=== PATIENT | female | born 1965 | race Caucasian/White ===

== ENCOUNTER 2017-01-03 09:04 | Emergency (ER) | payer BC, OTHER ==
[~2017-01-03] VITALS: Ht 165.1 cm; Wt 81.0 kg
[2017-01-03 09:08] VITALS: TEMP 36.5; Ht 165.1 cm; Wt 81.0 kg
[2017-01-03] MEDS ORDERED: OXYCODONE HCL IR 5 MG TAB (IMMEDIATE RELEASE) PO STA (09:23)
[2017-01-03] MEDS ORDERED: OXYC1TAB3 PO (10:24)
[2017-01-03 10:25] VITALS: BP 172/87; PULSE 78; O2SAT 99
--- NOTE | 2017-01-03 10:25 | EMERGENCY ROOM VISIT NOTE ---
History First contact with patient: 09:12 Chief Complaint: SHOULDER PAIN Stated Complaint: SHOULDER PAIN History of Present Illness The patient is a 51 year old female who presents to the Emergency Room with complaints of neck pain radiating into her left shoulder. The patient states that she has been having the pain for 2 weeks. It is getting progressively worse. The patient states that the pain started in the left side of her neck and now is radiating down to her shoulder blade and out to her shoulder. It goes down her arm. She denies any numbness and tingling in the left arm. The patient denies any chest pain. The patient denies any trauma to her neck or shoulder. She was seen initially by a chiropractor. He told her wasn't getting any better to go to orthopedics. She states it wasn't getting any better but she went to [facility] who took x-rays of her neck which revealed no bony abnormality. They told her she "had a pinched nerve". She cannot have steroids since she has glaucoma. They put her on a muscle relaxer but did not give her any other pain medication. She is taking ibuprofen 400 mg every 4 hours for pain without any relief. She recently switched insurance and her new family doctor will be at [facility] . She has not yet had an appointment there but her was there about one month ago. Review of Systems 10 system review was performed and was negative unless stated otherwise history of present illness. Past Medical/Surgical History Glaucoma, DVT, Social History Smoking Status: Former Smoker Smokeless Tobacco Use: No Alcohol Use: none Drug Use: none Marital Status: Housing Status: lives with family Occupation Status: unemployed Current/Historical Medications No Active Prescriptions or Reported Meds Allergies Coded Allergies: No Known Allergies (Verified , 01/03/17) Physical Exam Vital Signs Date Time Temp Pulse Resp B/P (MAP) Pulse Ox O2 Delivery O2 Flow Rate FiO2 01/03/17 09:08 36.5 82 20 184/89 96 Room Air Physical Exam GENERAL: 51-year-old white female appears in no acute distress. MENTAL Status: Alert and oriented 3.. LUNGS: Clear auscultation without wheezes rales or rhonchi. CARDIAC: Regular rate and rhythm without murmur. Pulses is full and equal throughout. CERVICAL SPINE: Appears patient has increased lordosis of the cervical spine. The patient is nontender to palpation over the spinous processes. She is tender to palpation over the left paravertebral region. She has full range of motion of the cervical spine with pain elicited with extension, left rotation and lateral bending. Industrial Relations Director strength is 5 out of 5 bilateral upper extremities and symmetrical. LEFT SHOULDER: No gross bony deformity noted. No erythema or edema noted. The patient is tender to palpation over the trapezius muscle. The patient has full range of motion of the shoulder with pain elicited only with complete abduction. Medical Decision & Procedures Medications Administered Medications (Trade) Dose Ordered Sig/Radha Route Start Time Stop Time Status Last Admin Dose Admin Oxycodone HCl (Roxicodone Immediate Rel Tab) 10 mg NOW STAT PO 01/03/17 09:23 01/03/17 09:24 DC 01/03/17 09:48 10 MG ED Course The patient was evaluated. She has already had x-rays done of the cervical spine at [facility] several I will not repeat the x-rays. I had the hospice case manager talk with the patient and the hospice case manager is going to call [facility] physicians group on Wednesday to schedule a follow-up appointment next week for the patient. The patient was given OxyIR 10 mg by mouth. The patient was reevaluated and was feeling much better. The patient was discharged home in stable condition with her driving.. Medical Decision Differential diagnosis include spinal stenosis, degenerative disc disease, herniated cervical disc, rotator cuff tear I think that shoulder pain is coming from the neck and therefore if the patient is not improving I feel she needs either physical therapy or possible MRI which can be ordered by her family physician. [place] Drug Monitoring Program Search Results: patient reviewed within database Impression Primary Impression: Neck pain on left side Departure Information Dispostion Home / Self-Care Condition GOOD Prescriptions Oxycodone Immediate Rel Tab (ROXICODONE IR) 5 Mg Tab 1-2 TAB PO Q6 Y for Pain, #24 TAB Prov: Eliana Zamora PA-C 01/03/17 Referrals No Doctor, Assigned (PCP) Forms HOME CARE DOCUMENTATION FORM, IMPORTANT VISIT INFORMATION Patient Instructions My [facility] Additional Instructions Ibuprofen 600 mg every 6 hours with food. May also take her muscle relaxer as previously prescribed. Take OxyIR for more severe pain. Do not drive while taking the OxyIR. Our hospice case manager will call you Wednesday with an appointment time with your PCP for follow-up. If you have any severe pain at home that is not controlled by your current medications, return to ER.
== END 2017-01-03 10:41 | disposition home or self-care (01) ==
LOC: C.EDB 09:06 → C.EDA 10:41
DX: M54.2 Cervicalgia (principal); H40.9 Unspecified glaucoma; Z87.891 Personal history of nicotine dependence

== ENCOUNTER → 2017-09-08 | Day surgery (SDC) | payer OTHER ==
[2017-09-07 10:42] VITALS: BMI 26.0
[~2017-09-08] VITALS: Ht 165.1 cm; Wt 72.7 kg
[~2017-09-08] MED LIST: CALC-393 PO; LIDOCAINE HCL 2% 2 ML VIAL (20MG/ML) ONE; MULT-506 PO; PROPOFOL IV EMULSION 10 MG/ML 20 ML VIAL IV ONE; SODIUM CHLORIDE 0.9% 500ML 500 ML IV ONE
[2017-09-08 13:16] VITALS: Ht 165.1 cm; Wt 72.7 kg
--- NOTE | 2017-09-08 13:31 | Endo History and Physical ---
History & Physical Date of Service: Sep 08, 2017. Chief Complaint: screening Referring Physician: Dr. Cueva History of Present Illness 51 yo CF who presents for screening colonoscopy. Past Surgical History Hx Cardiac Surgery: No Hx Internal Defibrillator: No Hx Pacemaker: No Hx Abdominal Surgery: Yes () Hx of Implantable Prosthesis: No Hx Post-Op Nausea and Vomiting: Yes Hx Cancer Surgery: No Hx Thoracic Surgery: No Hx Orthopedic: Yes (CERVICAL DISC SURGERY) Hx Urinary Tract Surgery: No Family History Colon CA Social History Smoking Status: Former Smoker Hx Substance Use: No Hx Alcohol Use: Yes (OCCASIONALLY) Allergies Coded Allergies: No Known Allergies (Verified , 09/08/17) Current Medications Reported Home Medications Medications Dose Route/Sig Max Daily Dose Days Date Category Calcium (Calcium Carbonate) 600 Mg Tab 1 Tab PO DAILY 09/07/17 Reported Multivitamin (Multivitamins) Tab 1 Tab PO DAILY 09/07/17 Reported Vital Signs Weight (Kilograms): 72.73 Height (Feet): 5 Height (Inches): 5 Physical Exam General Appearance: WD/WN, no apparent distress Respiratory/Chest: Auscultation: breath sounds normal Cardiovascular: Heart Auscultation: RRR Abdomen: Bowel Sounds: normal Inspection & Palpation: soft, non-distended, no tenderness, guarding & rebound Assessment and Plan Assessment: 51 yo CF who presents for screening colonoscopy. Plan: Proceed with colonoscopy.
--- NOTE | 2017-09-08 14:40 | Discharge Instructions ---
Endoscopy Patient Instructions Date / Procedure(s) Performed Sep 08, 2017. Colonoscopy Allergy Information Coded Allergies: No Known Allergies (Verified , 09/08/17) Discharge Date / Findings Sep 08, 2017. Colon polyps Rectal polyps Diverticulosis Internal hemorrhoids Medication Instructions OK to resume all medications today as prescribed Reported Home Medications Medications Dose Route/Sig Max Daily Dose Days Date Category Calcium (Calcium Carbonate) 600 Mg Tab 1 Tab PO DAILY 09/07/17 Reported Multivitamin (Multivitamins) Tab 1 Tab PO DAILY 09/07/17 Reported Provider Instructions Activity Restrictions - No exercising or heavy lifting for 24 hours. - Do not drink alcohol the day of the procedure. - Do not drive a car or operate machinery until the day after the procedure. - Do not make any important decisions or sign important papers in 24 hours after the procedure. Following Day: - Return to full activity which may include returning to work/school. Diet Start your diet with liquids and light foods (jello, soup, juice, toast). Then eat your usual diet if not nauseated. Treatment For Common After Affects For mild abdominal pain, bloating, or excessive gas: - Rest - Eat lightly - Lie on right side Follow-Up Information Follow-up with Dr. Cueva as scheduled Anesthesia Information What You Should Know You have had a procedure that required some medicine to reduce anxiety and discomfort. This treatment is called moderate sedation. After receiving the treatment, you may be sleepy, but you will be able to breathe on your own. The effects of the treatment may last for several hours. Follow these instructions along with Activity/Diet recommendations noted above: * Do NOT do anything where dizziness or clumsiness would be dangerous. * Rest quietly at home today, then you can be up and about tomorrow. * Have a responsible person stay with you the rest of today. * You may have had an I.V. today. If so, you may take the dressing off later today. Recommendations Call your doctor if: * Trouble breathing * Continuous vomiting for more than 24 hours * Temperature above 101 degrees * Severe abdominal pain or bloating * Pain not relieved by pain medicine ordered * There is increased drainage or redness from any incision * A large amount of rectal bleeding greater than 2-3 tablespoons. (If you had a polyp/s removed or have hemorrhoids, a small amount of blood - from the rectum is to be expected.) * You have any unanswered questions or concerns. IN THE EVENT OF A SERIOUS EMERGENCY, GO TO THE NEAREST EMERGENCY ROOM Your discharge instructions were prepared by provider Joseph Macias. Patient Instructions Signature Page Ryann Davies Patient (or Guardian) Signature/Date: I have read and understand the instructions given to me by my caregivers. Caregiver/RN/Doctor Signature/Date: The above-named patient and/or guardian has received patient instructions on this date. + Original Patient Signature Page (only) stays with chart. Please make copy for patient.
--- NOTE | 2017-09-08 14:54 | GI REPORT ---
Procedure Date: 09/08/2017 1:32 PM Procedure: Colonoscopy Indications: Screening for colorectal malignant neoplasm Medicines: Monitored Anesthesia Care Complications: No immediate complications. Estimated Blood Loss: Estimated blood loss: none. Procedure: Pre-Anesthesia Assessment: - Prior to the procedure, a History and Physical was performed, and patient medications and allergies were reviewed. The patient's tolerance of previous anesthesia was also reviewed. The risks and benefits of the procedure and the sedation options and risks were discussed with the patient. All questions were answered, and informed consent was obtained. Prior Anticoagulants: The patient has taken no previous anticoagulant or antiplatelet agents. ASA Grade Assessment: I - A normal, healthy patient. After reviewing the risks and benefits, the patient was deemed in satisfactory condition to undergo the procedure. After I obtained informed consent, the scope was passed under direct vision. Throughout the procedure, the patient's blood pressure, pulse, and oxygen saturations were monitored continuously. The scope was introduced through the anus and advanced to the cecum, identified by appendiceal orifice and ileocecal valve. The colonoscopy was performed without difficulty. The patient tolerated the procedure well. The quality of the bowel preparation was good. The ileocecal valve, appendiceal orifice, and rectum were photographed. Findings: The perianal and digital rectal examinations were normal. Four sessile polyps were found in the rectum and ascending colon. The polyps were 4 to 7 mm in size. These polyps were removed with a hot snare. Resection and retrieval were complete. Multiple small-mouthed diverticula were found in the sigmoid colon. Non-bleeding internal hemorrhoids were found during retroflexion. The hemorrhoids were small. Impression: - Four 4 to 7 mm polyps in the rectum and in the ascending colon, removed with a hot snare. Resected and retrieved. - Diverticulosis in the sigmoid colon. - Non-bleeding internal hemorrhoids. Recommendation: - Resume previous diet. - Continue present medications. - Repeat colonoscopy for surveillance based on pathology results. - Return to primary care physician as previously scheduled. Joseph Macias DO 09/08/2017 2:53:48 PM This report has been signed electronically. Note Initiated On: 09/08/2017 1:32 PM I attest to the content of the Intraoperative Record and orders documented therein, exceptions below
--- NOTE | 2017-09-08 15:00 | Anesthesiology Progress Note ---
Anesthesia Post Op Note Date & Time Sep 08, 2017 at 15:00 Vital Signs Pain Intensity: 0 Vital Signs Past 12 Hours Date Time Temp Pulse Resp B/P (MAP) Pulse Ox O2 Delivery O2 Flow Rate FiO2 09/08/17 14:39 92 16 140/80 (100) 95 Room Air 09/08/17 13:24 36.9 83 20 165/105 (125) 95 Room Air Notes Mental Status: alert / awake / arousable, participated in evaluation Pt Amnestic to Procedure: Yes Nausea / Vomiting: adequately controlled Pain: adequately controlled Airway Patency, RR, SpO2: stable & adequate BP & HR: stable & adequate Hydration State: stable & adequate Anesthetic Complications: no major complications apparent
[2017-09-08 15:10] VITALS: BP 147/87; PULSE 84; O2SAT 100
== END | disposition home or self-care (01) ==
LOC: C.GI 12:52
PROVIDERS: ATTEND Internal Medicine
DX: Z12.11 Encounter for screening for malignant neoplasm of colon (principal); D12.4 Benign neoplasm of descending colon; D12.8 Benign neoplasm of rectum; K57.30 Diverticulosis of large intestine without perforation or abscess without bleeding; K64.8 Other hemorrhoids; Z98.890 Other specified postprocedural states; Z87.891 Personal history of nicotine dependence; Z80.0 Family history of malignant neoplasm of digestive organs

== ENCOUNTER → 2017-12-17 | Outpatient (CLI) | payer OTHER ==
[~2017-12-17] MED LIST changes: +AMLO5TAB3 PO; -LIDOCAINE HCL 2% 2 ML VIAL (20MG/ML) ONE; -PROPOFOL IV EMULSION 10 MG/ML 20 ML VIAL IV ONE; +SINCALIDE INJ 1.5 MCG in SODIUM CHLORIDE 0.9% 100ML 100 ML IV ONE; -SODIUM CHLORIDE 0.9% 500ML 500 ML IV ONE
--- NOTE | 2017-12-17 15:01 | DIAGNOSTIC IMAGING REPORT ---
HEPATOBILIARY EF IMAGING CLINICAL HISTORY: 51 years-old Female with ELEVATED LFT. Acutely elevated LFTs TECHNIQUE: Following the intravenous administration of 5.5 mCi of technetium-99m Choletec, sequential abdominal images were obtained. In order to evaluate the contractile response of the gallbladder, 1.5 mcg of Kinevac was administered by slow intravenous infusion over 30 min starting approximately 60 min after the administration of the radiopharmaceutical. Sequential imaging was continued for 45 min after the start of the Kinevac infusion. COMPARISON: Abdominal ultrasound 12/02/2017 FINDINGS: There is prompt, uniform accumulation of the tracer by the liver. There is normal filling of the intrahepatic ducts, common bile duct and gallbladder and normal excretion of the tracer into the duodenum. There is adequate contraction of the gallbladder. The calculated gallbladder ejection fraction is 98% (normal >40%). There is no enterogastric reflux. IMPRESSION: 1. Normal contractile response of the gallbladder to Kinevac infusion. 2. Normal biliary imaging study. The above report was generated using voice recognition software. It may contain grammatical, syntax or spelling errors. Electronically signed by: Cipriano Barr M.D. 12/17/2017 2:59 PM Dictated Date/Time: 12/17/2017 2:56 PM
== END | disposition home or self-care (01) ==
LOC: C.NUCL 12:28
PROVIDERS: ATTEND Nurse Practitioner
DX: R94.5 Abnormal results of liver function studies (principal)

== ENCOUNTER 2017-12-29 21:08 | Observation (INO) | payer OTHER ==
[~2017-12-29] VITALS: Ht 165.1 cm; Wt 80.6 kg
[~2017-12-29 21:08] MED LIST changes: -AMLO5TAB3 PO; -SINCALIDE INJ 1.5 MCG in SODIUM CHLORIDE 0.9% 100ML 100 ML IV ONE
[2017-12-29] MEDS ORDERED: ONDANSETRON INJ 2 MG/ML 2 ML VIAL IV STA ×2 (21:25→23:17)
[2017-12-29] MEDS ORDERED: KETOROLAC TROMETHAMINE 30 MG/ML VIAL IV STA (21:25)
[2017-12-29] MEDS ORDERED: MoRPHine SULFATE 4 MG/ML 1 ML CARP\\VIAL IV STA ×2 (21:25→23:17)
[2017-12-29] MEDS ORDERED: SODIUM CHLORIDE 0.9% 1000ML 1,000 ML IV STA (21:25)
[2017-12-29 21:49] LABS: BASO % 0.3 %; BASO ABS # 0.03 K/uL (0-0.2); EOS % 1.2 %; EOS ABS # 0.11 K/uL (0-0.5); HEMATOCRIT 42.1 % (37-47); IG# 0.07 K/uL (0.00-0.02); LYMPH ABS # 2.02 K/uL (1.2-3.4); MEAN CELL VOLUME 88.3 fL (80-100); MEAN CORPUSCULAR HEMOGLOBIN 31.4 pg (25-34); MEAN CORPUSCULAR HGB CONC 35.6 g/dl (32-36); MONO % 2.2 %; NEUT % 73.5 %; NEUT ABS # 6.77 K/uL (1.4-6.5); PLATELET COUNT 262 K/uL (130-400); RED CELL DISTRIBUTION WIDTH SD 41.7 fL (36.4-46.3)
[2017-12-29 22:10] LABS: ALBUMIN 4.1 gm/dl (3.4-5.0); CALCIUM 9.6 mg/dl (8.5-10.1); CREATININE 0.85 mg/dl (0.60-1.20); POTASSIUM 4.1 mmol/L (3.5-5.1); TOTAL PROTEIN 8.2 gm/dl (6.4-8.2)
[2017-12-29] MEDS ORDERED: CEFTRIAXONE SOD INJ 1 GM ADDVIAL IV STA (22:17)
--- NOTE | 2017-12-29 22:32 | DIAGNOSTIC IMAGING REPORT ---
EXAMINATION: RENAL ULTRASOUND CLINICAL HISTORY: Left flank pain COMPARISON STUDY: FINDINGS: The right kidney measures 12.5 cm. The left kidney measures 11.2 cm. There is no right-sided hydronephrosis. There is mild fullness of the left renal collecting system. No renal masses are visualized. There are bilateral tiny echogenic renal foci likely representing calculi. No bladder abnormalities are visualized. Bilateral ureteral jets were visualized. IMPRESSION : 1. Probable tiny bilateral renal calculi 2. Minimal fullness of the left renal collecting system, but no evidence of high-grade obstruction as bilateral ureteral jets are visualized Electronically signed by: Justin Frazier M.D. 12/29/2017 10:30 PM Dictated Date/Time: 12/29/2017 10:25 PM
[2017-12-29] MEDS ORDERED: AMLO5TAB3 PO (22:40)
[2017-12-29] MEDS ORDERED: OPTIRAY 320 IV PRN (23:00)
[2017-12-30] VITALS (14 sets, daily range): BP systolic 108–147; BP diastolic 68–87; PULSE 70–97; TEMP 36.6–38.4; O2SAT 93–97; Ht 165.1 cm; Wt 80.6 kg
[2017-12-30] MEDS ORDERED: ZOLPIDEM TARTRATE 5 MG TAB PO PRN (00:15)
[2017-12-30] MEDS ORDERED: HYDROmorphone INJ 0.5 MG/0.5 ML SYR IV PRN (00:15)
[2017-12-30] MEDS ORDERED: MAGNESIUM HYDROXIDE SUSP 30 ML UDC PO PRN (00:15)
[2017-12-30] MEDS ORDERED: ALUMINUM/MAGNESIUM/SIMETH (MAALOX MAX) 30 ML UDC PO PRN (00:15)
[2017-12-30] MEDS ORDERED: ONDANSETRON INJ 2 MG/ML 2 ML VIAL IV PRN ×2 (00:15→08:45)
--- NOTE | 2017-12-30 00:21 | History and Physical ---
History & Physical Date & Time of Service: Dec 30, 2017 at 00:15 Chief Complaint: Pain Left Side Primary Care Physician: Emilie Avina [email or web address] History of Present Illness Source: patient, other 52 y/o F Hx HTN. Presents with L flank pain, nausea and vomiting. The pain has been severe. She has not had a fever. A UA is (+). Past Medical/Surgical History 1) HTN 2) Renal calculus 2006 - passed spontaneously Family History Mother due to lung CA Social History Employed as [employer] Smoking Status: Never Smoker Drug Use: none Marital Status: Occupational Status: unemployed Immunizations History of Influenza Vaccine: Unknown History of Tetanus Vaccine?: Unknown History of Pneumococcal: Unknown History of Hepatitis B Vaccine: Unknown Allergies Coded Allergies: No Known Allergies (Verified , 12/29/17) Home Medications Scheduled Amlodipine (Norvasc), 5 MG PO DAILY Review of Systems Constitutional: No fever, No chills, No sweats Eyes: No worsening of vision ENT: No hearing loss, No nasal symptoms Respiratory: No cough, No sputum, No wheezing Cardiovascular: No chest pain, No PND Abdomen: + pain Musculoskeletal: No joint pain Neurologic: No memory loss, No paralysis, No weakness Psychiatric: No depression symptoms Endocrine: No fatigue Hematologic / Lymphatic: No abnormal bleeding/bruising Integumentary: No rash Allergic / Immunologic: No environmental allergies Physical Exam Vital Signs Date Time Temp Pulse Resp B/P (MAP) Pulse Ox O2 Delivery O2 Flow Rate FiO2 12/29/17 23:28 103 18 154/79 95 Room Air 12/29/17 22:25 90 18 150/81 96 Room Air 12/29/17 21:14 36.8 91 18 176/99 93 Room Air General Appearance: WD/WN, no apparent distress Head: normocephalic Eyes: normal inspection ENT: normal ENT inspection, pharynx normal Neck: supple, no JVD Respiratory/Chest: chest non-tender, lungs clear, normal breath sounds Cardiovascular: regular rate, rhythm, no edema Abdomen/GI: normal bowel sounds Back: + left CVA tenderness Extremities/Musculoskelatal: normal inspection, no calf tenderness, normal capillary refill Neurologic/Psych: 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 II-XII nml as tested, no motor/sensory deficits, alert, oriented x 3 Skin: normal color, warm/dry, no rash Diagnostics Laboratory Results Results Past 24 Hours Test 12/29/17 21:25 12/29/17 21:30 Range/Units Urine Color YELLOW Urine Appearance CLOUDY CLEAR Urine pH 5.0 4.5-7.5 Urine Specific [place] 1.019 1.000-1.030 Urine Protein NEG NEG Urine Glucose (UA) NEG NEG Urine Ketones NEG NEG Urine Occult Blood 2+ NEG Urine Nitrite POS NEG Urine Bilirubin NEG NEG Urine Urobilinogen NEG NEG Urine Leukocyte Esterase LARGE NEG Urine WBC (Auto) >30 0-5 /hpf Urine RBC (Auto) 5-10 0-4 /hpf Urine Hyaline Casts (Auto) 1-5 0-5 /lpf Urine Epithelial Cells (Auto) >30 0-5 /lpf Urine Bacteria (Auto) 4+ NEG White Blood Count 9.20 4.8-10.8 K/uL Red Blood Count 4.77 4.2-5.4 M/uL Hemoglobin 15.0 12.0-16.0 g/dL Hematocrit 42.1 37-47 % Mean Corpuscular Volume 88.3 80-100 fL Mean Corpuscular Hemoglobin 31.4 25-34 pg Mean Corpuscular Hemoglobin Concent 35.6 32-36 g/dl Platelet Count 262 130-400 K/uL Mean Platelet Volume 10.0 7.4-10.4 fL Neutrophils (%) (Auto) 73.5 % Lymphocytes (%) (Auto) 22.0 % Monocytes (%) (Auto) 2.2 % Eosinophils (%) (Auto) 1.2 % Basophils (%) (Auto) 0.3 % Neutrophils # (Auto) 6.77 1.4-6.5 K/uL Lymphocytes # (Auto) 2.02 1.2-3.4 K/uL Monocytes # (Auto) 0.20 0.11-0.59 K/uL Eosinophils # (Auto) 0.11 0-0.5 K/uL Basophils # (Auto) 0.03 0-0.2 K/uL RDW Standard Deviation 41.7 36.4-46.3 fL RDW Coefficient of Variation 13.0 11.5-14.5 % Immature Granulocyte % (Auto) 0.8 % Immature Granulocyte # (Auto) 0.07 0.00-0.02 K/uL Sodium Level 137 136-145 mmol/L Potassium Level 4.1 3.5-5.1 mmol/L Chloride Level 103 98-107 mmol/L Carbon Dioxide Level 25 21-32 mmol/L Anion Gap 9.0 3-11 mmol/L Blood Urea Nitrogen 17 7-18 mg/dl Creatinine 0.85 0.60-1.20 mg/dl Est Creatinine Clear Calc Drug Dose 80.5 ml/min Estimated GFR () 90.7 Estimated GFR (Non- 78.2 BUN/Creatinine Ratio 19.8 10-20 Random Glucose 158 70-99 mg/dl Calcium Level 9.6 8.5-10.1 mg/dl Total Bilirubin 0.5 0.2-1 mg/dl Direct Bilirubin 0-0.2 mg/dl Aspartate Amino Transf (AST/SGOT) 37 15-37 U/L Alanine Aminotransferase (ALT/SGPT) 72 12-78 U/L Alkaline Phosphatase 128 45-117 U/L Total Protein 8.2 6.4-8.2 gm/dl Albumin 4.1 3.4-5.0 gm/dl Chemistry Specimen Hemolysis Microbiology Results 12/29/17 Urine Culture, Received Pending Diagnostic Radiology CT abdomen/pelvis 5mm proximal obstructing calculus - no significant hydronephrosis reported. Impression Assessment and Plan 52 y/o F Hx HTN. Presents with L flank pain, nausea and vomiting. The pain has been severe. She has not had a fever. A UA is (+). 1) Obstructing calculus with UTI. Pt placed on abx and IVF. Antiemetics and analgesics provided as needed. She will be evaluated for stenting by the urology service. She does not have significant risk factors for undergoing surgery. 2) HTN - cont Norvasc Full code - SCDs pending a procedure. Total time for this admit including review of labs, meds, imaging, records - discussion with pt and ER attending - 32 min Resuscitation Status VTE Prophylaxis Will order VTE Prophylaxis: Yes
[2017-12-30] MEDS ORDERED: IV FLUIDS COMPLETED PRN (00:30)
--- NOTE | 2017-12-30 01:39 | EMERGENCY ROOM VISIT NOTE ---
History First contact with patient: 21:23 Chief Complaint: FLANK PAIN Stated Complaint: PAIN LEFT SIDE History of Present Illness The patient is a 52 year old female who presents to the Emergency Room with complaints of sudden onset of severe left flank pain that radiates to her groin for the past hour currently 9 out of 10. Nothing makes it better or worse. Described as aching. Patient complains of nausea and vomiting. She has had a history of kidney stones and this feels similar. Patient denies chest pain, dyspnea, fever, chills, cough, congestion, urinary symptoms. No injury to the area. No history of diverticulitis. She no longer is menstruating. Review of Systems An 10 system review of systems was completed with positives and pertinent negatives listed in the HPI. Past Medical/Surgical History Medical Problems: (1) Hydronephrosis with obstructing calculus (2) UTI (urinary tract infection) Social History Smoking Status: Never Smoker Alcohol Use: none Drug Use: none Marital Status: Housing Status: lives with family Occupation Status: unemployed Current/Historical Medications Scheduled Amlodipine (Norvasc), 5 MG PO DAILY Physical Exam Vital Signs Date Time Temp Pulse Resp B/P (MAP) Pulse Ox O2 Delivery O2 Flow Rate FiO2 12/30/17 00:55 102 18 122/69 95 Room Air 12/29/17 23:28 103 18 154/79 95 Room Air 12/29/17 22:25 90 18 150/81 96 Room Air 12/29/17 21:14 36.8 91 18 176/99 93 Room Air Physical Exam VITALS: Vitals are noted on the nurse's note and reviewed by myself. Vital signs hypertensive. GENERAL: Pleasant female who appears in pain, in no acute distress, nondiaphoretic, well-developed well-nourished. SKIN: The skin was without rashes, erythema, edema, or bruising. There is no tenting of the skin. Capillary reflex less than 2 seconds. HEAD: Normocephalic atraumatic. EARS: External auditory canals clear, tympanic membranes pearly lepe without erythema or effusion bilaterally. EYES: Pupils equal round and reactive to light and accommodation. Conjunctivae without injection, sclerae without icterus. Extraocular movements intact. NOSE: Patent, turbinates without inflammation or discharge. MOUTH: Mucous membranes moist. Pharynx without erythema or exudate. Uvula midline. Airway patent. Tongue does not deviate. NECK: Supple without nuchal rigidity. No lymphadenopathy. No thyromegaly. Cervical spine is nontender. No JVD. HEART: Regular rate and rhythm without murmurs gallops or rubs. LUNGS: Clear to auscultation bilaterally without wheezes, rales or rhonchi. No retractions or accessory muscle use. ABDOMEN: Positive bowel sounds x 4. Normal tympanic percussion. Soft, left lower quadrant tender to palpation, without masses or organomegaly. Schaefer sign negative. No guarding or rebound tenderness. Left CVA tenderness MUSCULOSKELETAL: No muscle atrophy, erythema, or edema noted. NEURO: Patient was alert and oriented to person place and time. Normal sensation to light and sharp touch. No focal neurological deficits. Medical Decision & Procedures Laboratory Results 12/29/17 21:30 Red Blood Count 4.77, Mean Corpuscular Volume 88.3, Mean Corpuscular Hemoglobin 31.4, Mean Corpuscular Hemoglobin Concent 35.6, Mean Platelet Volume 10.0, Neutrophils (%) (Auto) 73.5, Lymphocytes (%) (Auto) 22.0, Monocytes (%) (Auto) 2.2, Eosinophils (%) (Auto) 1.2, Basophils (%) (Auto) 0.3, Neutrophils # (Auto) 6.77, Lymphocytes # (Auto) 2.02, Monocytes # (Auto) 0.20, Eosinophils # (Auto) 0.11, Basophils # (Auto) 0.03 12/29/17 21:30 Test 12/29/17 21:25 12/29/17 21:30 Urine Color YELLOW Urine Appearance CLOUDY (CLEAR) Urine pH 5.0 (4.5-7.5) Urine Specific [place] 1.019 (1.000-1.030) Urine Protein NEG (NEG) Urine Glucose (UA) NEG (NEG) Urine Ketones NEG (NEG) Urine Occult Blood 2+ (NEG) Urine Nitrite POS (NEG) Urine Bilirubin NEG (NEG) Urine Urobilinogen NEG (NEG) Urine Leukocyte Esterase LARGE (NEG) Urine WBC (Auto) >30 /hpf (0-5) Urine RBC (Auto) 5-10 /hpf (0-4) Urine Hyaline Casts (Auto) 1-5 /lpf (0-5) Urine Epithelial Cells (Auto) >30 /lpf (0-5) Urine Bacteria (Auto) 4+ (NEG) White Blood Count 9.20 K/uL (4.8-10.8) Red Blood Count 4.77 M/uL (4.2-5.4) Hemoglobin 15.0 g/dL (12.0-16.0) Hematocrit 42.1 % (37-47) Mean Corpuscular Volume 88.3 fL (80-100) Mean Corpuscular Hemoglobin 31.4 pg (25-34) Mean Corpuscular Hemoglobin Concent 35.6 g/dl (32-36) Platelet Count 262 K/uL (130-400) Mean Platelet Volume 10.0 fL (7.4-10.4) Neutrophils (%) (Auto) 73.5 % Lymphocytes (%) (Auto) 22.0 % Monocytes (%) (Auto) 2.2 % Eosinophils (%) (Auto) 1.2 % Basophils (%) (Auto) 0.3 % Neutrophils # (Auto) 6.77 K/uL (1.4-6.5) Lymphocytes # (Auto) 2.02 K/uL (1.2-3.4) Monocytes # (Auto) 0.20 K/uL (0.11-0.59) Eosinophils # (Auto) 0.11 K/uL (0-0.5) Basophils # (Auto) 0.03 K/uL (0-0.2) RDW Standard Deviation 41.7 fL (36.4-46.3) RDW Coefficient of Variation 13.0 % (11.5-14.5) Immature Granulocyte % (Auto) 0.8 % Immature Granulocyte # (Auto) 0.07 K/uL (0.00-0.02) Anion Gap 9.0 mmol/L (3-11) Est Creatinine Clear Calc Drug Dose 80.5 ml/min Estimated GFR () 90.7 Estimated GFR (Non- 78.2 BUN/Creatinine Ratio 19.8 (10-20) Calcium Level 9.6 mg/dl (8.5-10.1) Total Bilirubin 0.5 mg/dl (0.2-1) Direct Bilirubin mg/dl (0-0.2) Aspartate Amino Transf (AST/SGOT) 37 U/L (15-37) Alanine Aminotransferase (ALT/SGPT) 72 U/L (12-78) Alkaline Phosphatase 128 U/L (45-117) Total Protein 8.2 gm/dl (6.4-8.2) Albumin 4.1 gm/dl (3.4-5.0) Chemistry Specimen Hemolysis Medications Administered Medications (Trade) Dose Ordered Sig/Radha Route Start Time Stop Time Status Last Admin Dose Admin Ketorolac Tromethamine (Toradol Inj) 10 mg NOW STAT IV 12/29/17 21:25 12/29/17 21:27 DC 12/29/17 21:33 10 MG Morphine Sulfate (MoRPHine SULFATE INJ) 4 mg NOW STAT IV 12/29/17 21:25 12/29/17 21:27 DC 12/29/17 21:33 4 MG Ondansetron HCl (Zofran Inj) 4 mg NOW STAT IV 12/29/17 21:25 12/29/17 21:27 DC 12/29/17 21:33 4 MG Sodium Chloride 1,000 ml @ 999 mls/hr Q1H1M STAT IV 12/29/17 21:25 12/29/17 22:25 DC 12/29/17 21:32 999 MLS/HR Ceftriaxone Sodium (Rocephin Inj) 1 gm NOW STAT IV 12/29/17 22:17 12/29/17 22:18 DC 12/29/17 23:40 1 GM Morphine Sulfate (MoRPHine SULFATE INJ) 4 mg NOW STAT IV 12/29/17 23:17 12/29/17 23:18 DC 12/29/17 23:23 4 MG Ondansetron HCl (Zofran Inj) 4 mg NOW STAT IV 12/29/17 23:17 12/29/17 23:18 DC 12/29/17 23:23 4 MG ED Course Prior records/ancillary studies reviewed. Triage Nursing notes reviewed. Additional history obtained from family The patient's history was concerning for abdominal pain. Differential diagnosis: Etiologies such as appendicitis, diverticulitis, PUD, biliary pathology, UTI, pancreatitis, obstruction, mesenteric ischemia, aortic pathology, infections, inflammatory bowel disease, renal colic, as well as others were entertained. Physical examination findings: As above. ER treatment provided: Morphine, Zofran, IV fluids, Rocephin On reassessment the patient felt better. Diagnostics interpreted by me: The labs revealed urine consistent with infection sent for culture. Hyperglycemia without DKA No leukocytosis Imaging studies: [] EXAMINATION: RENAL ULTRASOUND CLINICAL HISTORY: Left flank pain COMPARISON STUDY: FINDINGS: The right kidney measures 12.5 cm. The left kidney measures 11.2 cm. There is no right-sided hydronephrosis. There is mild fullness of the left renal collecting system. No renal masses are visualized. There are bilateral tiny echogenic renal foci likely representing calculi. No bladder abnormalities are visualized. Bilateral ureteral jets were visualized. IMPRESSION : 1. Probable tiny bilateral renal calculi 2. Minimal fullness of the left renal collecting system, but no evidence of high-grade obstruction as bilateral ureteral jets are visualized Electronically signed by: Justin Frazier M.D. CT ABDOMEN & PELVIS With Contrast: 5 mm obstructing proximal left ureteral stone. No evidence for pyelonephritis Fibroid uterus Radiologist: Heber Lloyd MD Consultation: A consultation was placed with the urologist, Dr. Gomes and recommends medical admission and will place a stent in the morning. Dr. Rivera was consulted and will evaluate the patient. The case was discussed and diagnostics were reviewed. The patient was evaluated in the ER for further treatment. Exam and history seem consistent with UTI and obstructing stone. Urology and medicine consult. Patient started on antibiotics. The pain was managed. Patient agrees to treatment plan of admission. Patient had no fever. She had no leukocytosis. Urine culture was placed. The patient did not have acute abdomen on exam. She was reassessed multiple times. By the evaluation outlined above emergent etiologies such as appendicitis, diverticulitis, PUD, biliary pathology, pancreatitis, obstruction, mesenteric ischemia, aortic pathology, inflammatory bowel disease, as well as others were deemed relatively unlikely. The pt informed about the findings as listed above. All questions were answered and pleased with the treatment. Case reviewed with my attending The chart was completed utilizing [employer] voice recognition software. Grammatical errors, random word insertions, pronoun errors, and incomplete sentences are an occassional consequence of this system due to software limitations, ambient noise, and hardware issues. Any formal questions or concerns about the content, text, or information contained within the body of this dictation should be directly addressed to the physician preschool assistant principal for clarification. Medical Decision As above Blood Pressure Screening Patient's blood pressure: Elevated blood pressure Blood pressure disposition: Elevated BP felt to be situational Impression Primary Impression: Hydronephrosis with obstructing calculus Additional Impression: UTI (urinary tract infection) Departure Information Dispostion Being Evaluated By Hospitalist Condition GOOD Referrals Emilie Avina, C.R.N.P. (PCP) Patient Instructions My [facility] Problem Qualifiers
[2017-12-30] MEDS ORDERED: POLYETHYLENE (MIRALAX) 17 GM PACK PO PRN (01:45)
[2017-12-30] MEDS ORDERED: SODIUM CHLORIDE 0.9% 1000ML 1,000 ML IV SCH (01:45)
[2017-12-30] MEDS: ACETAMINOPHEN 325 MG TAB PO PRN ×2 (01:46→03:26)
[2017-12-30] MEDS ORDERED: ACETAMINOPHEN 325 MG TAB PO ONE (03:30)
[2017-12-30] MEDS ORDERED: NURSING VERBAL MED ORDER ONE (03:30)
[2017-12-30] MEDS ORDERED: CIPROFLOXACIN 400MG / 200ML D5W IV SCH (06:00)
--- NOTE | 2017-12-30 06:44 | DIAGNOSTIC IMAGING REPORT ---
ABD/PELVIS IV CONTRAST ONLY CT DOSE: 469.63 mGy.cm HISTORY: Flank pain left flank pain, UTI, ? absces/pyelo TECHNIQUE: Multiaxial CT images of the abdomen and pelvis were performed following the use of intravenous contrast. A dose lowering technique was utilized adhering to the principles of ALARA. COMPARISON STUDY: None. FINDINGS: Lung bases are clear. Small hepatic cyst. Kidneys are negative for hydronephrosis on the right. Left demonstrates mild hydronephrosis and hydroureter. There is a 4 mm obstructing calculus left ureteropelvic junction. The Distal aspects of the ureters are unremarkable. There is a fibroid uterus. Bladder is midline. IMPRESSION: 1. 4 mm obstructing calculus left ureteropelvic junction. 2. Mild left hydroureteronephrosis. 3. Fibroid uterus. The above report was generated using voice recognition software. It may contain grammatical, syntax or spelling errors. Electronically signed by: Ibrahima Zamora M.D. 12/30/2017 6:43 AM Dictated Date/Time: 12/30/2017 6:41 AM
--- NOTE | 2017-12-30 07:41 | Urology Consultation ---
History General Date of Service: Dec 30, 2017. Chief Complaint: left flank pain Primary Care Physician: Emilie Avina C.R.N.P. Pt seen a urologist before?: No History of Present Illness 52 yo female presents to [facility] with c/o 1 day of left flank pain and n/v. CT scan showing a 4mm proximal left ureteral stone. Pt noted to be febrile overnight at 38.4C. UC&S pending. White count and Cr are normal. Denies dysuria or hematuria. She has a previous hx of passing a stone several years ago. Imaging Imaging: CT Laboratory Last 24 Hours Test 12/29/17 21:25 12/29/17 21:30 Urine Color YELLOW Urine Appearance CLOUDY Urine pH 5.0 Urine Specific [place] 1.019 Urine Protein NEG Urine Glucose (UA) NEG Urine Ketones NEG Urine Occult Blood 2+ Urine Nitrite POS Urine Bilirubin NEG Urine Urobilinogen NEG Urine Leukocyte Esterase LARGE Urine WBC (Auto) >30 /hpf Urine RBC (Auto) 5-10 /hpf Urine Hyaline Casts (Auto) 1-5 /lpf Urine Epithelial Cells (Auto) >30 /lpf Urine Bacteria (Auto) 4+ White Blood Count 9.20 K/uL Red Blood Count 4.77 M/uL Hemoglobin 15.0 g/dL Hematocrit 42.1 % Mean Corpuscular Volume 88.3 fL Mean Corpuscular Hemoglobin 31.4 pg Mean Corpuscular Hemoglobin Concent 35.6 g/dl Platelet Count 262 K/uL Mean Platelet Volume 10.0 fL Neutrophils (%) (Auto) 73.5 % Lymphocytes (%) (Auto) 22.0 % Monocytes (%) (Auto) 2.2 % Eosinophils (%) (Auto) 1.2 % Basophils (%) (Auto) 0.3 % Neutrophils # (Auto) 6.77 K/uL Lymphocytes # (Auto) 2.02 K/uL Monocytes # (Auto) 0.20 K/uL Eosinophils # (Auto) 0.11 K/uL Basophils # (Auto) 0.03 K/uL RDW Standard Deviation 41.7 fL RDW Coefficient of Variation 13.0 % Immature Granulocyte % (Auto) 0.8 % Immature Granulocyte # (Auto) 0.07 K/uL Sodium Level 137 mmol/L Potassium Level 4.1 mmol/L Chloride Level 103 mmol/L Carbon Dioxide Level 25 mmol/L Anion Gap 9.0 mmol/L Blood Urea Nitrogen 17 mg/dl Creatinine 0.85 mg/dl Est Creatinine Clear Calc Drug Dose 80.5 ml/min Estimated GFR () 90.7 Estimated GFR (Non- 78.2 BUN/Creatinine Ratio 19.8 Random Glucose 158 mg/dl Calcium Level 9.6 mg/dl Total Bilirubin 0.5 mg/dl Direct Bilirubin mg/dl Aspartate Amino Transf (AST/SGOT) 37 U/L Alanine Aminotransferase (ALT/SGPT) 72 U/L Alkaline Phosphatase 128 U/L Total Protein 8.2 gm/dl Albumin 4.1 gm/dl Chemistry Specimen Hemolysis Problem List Medical Problems: (1) Neck pain on left side Status: Acute Past History hypertension, kidney stones Past Surgical History: Family History mother from lung cancer Social History Hx Tobacco Use In Past Year?: No Smoking: non-smoker Marital status: Housing status: lives with family Occupation status: employed Immunizations History of Influenza Vaccine: Unknown History of Tetanus Vaccine?: Unknown History of Pneumococcal: Unknown History of Hepatitis B Vaccine: Unknown History of MDRO No Allergies Coded Allergies: No Known Allergies (Verified , 12/29/17) Medications Home Medications: Home Meds and Scripts Medications Dose Route/Sig Max Daily Dose Days Date Category Norvasc (Amlodipine Besylate) 5 Mg Tab 5 Mg PO DAILY 12/29/17 Reported Inpatient Medications: Current Inpatient Medications Medications (Trade) Dose Ordered Sig/Radha Route Start Time Stop Time Status Last Admin Dose Admin Ioversol (Optiray 320) 125 ml UD PRN IV 12/29/17 23:00 01/02/18 22:59 Amlodipine Besylate (Norvasc Tab) 5 mg DAILY PO 12/30/17 09:00 01/29/18 08:59 Ceftriaxone Sodium 1 gm/ Dextrose 50 ml @ 100 mls/hr Q24H IV 12/30/17 22:00 01/09/18 21:59 Sodium Chloride 1,000 ml @ 100 mls/hr Q10H IV 12/30/17 01:45 12/30/17 21:44 12/30/17 01:45 100 MLS/HR Acetaminophen (Tylenol Tab) 650 mg Q4H PRN PO 12/30/17 00:15 01/29/18 00:14 12/30/17 03:26 650 MG Al Hydrox/Mg Hydrox/Simethicone (Maalox Max Susp) 15 ml Q4H PRN PO 12/30/17 00:15 01/29/18 00:14 Magnesium Hydroxide (Milk Of Magnesia Susp) 30 ml Q6H PRN PO 12/30/17 00:15 01/29/18 00:14 Polyethylene (Miralax Powder Packet) 17 gm DAILY PRN PO 12/30/17 01:45 01/29/18 01:44 Zolpidem Tartrate (Ambien Tab) 5 mg HSZ PRN PO 12/30/17 00:15 01/29/18 00:14 Ondansetron HCl (Zofran Inj) 4 mg Q6H PRN IV 12/30/17 00:15 01/29/18 00:14 Hydromorphone HCl (Dilaudid Inj) 0.5 mg Q3H PRN IV 12/30/17 00:15 01/13/18 00:14 Miscellaneous (Iv Fluids Completed) 1 ea PRN PRN N/A 12/30/17 00:30 12/30/18 00:29 Review of Systems Review of Systems Constitutional: No fever, No chills Eyes: No double vision Neurological: No dizzy Endocrine: No excessive thirst Gastrointestinal: + abdominal pain (left flank ), + nausea, No vomiting Cardiovascular: No chest pain Respiratory: No shortness of breath Skin: No rash Musculoskeletal: No back pain Female : No painful urination, No blood in urine Physical Exam Vital Signs: Vital Signs Past 12 Hours Date Time Temp Pulse Resp B/P (MAP) Pulse Ox O2 Delivery O2 Flow Rate FiO2 12/30/17 06:20 37.2 12/30/17 02:46 38.4 12/30/17 01:53 38.1 97 18 147/85 93 Room Air 12/30/17 00:55 102 18 122/69 95 Room Air 12/29/17 23:28 103 18 154/79 95 Room Air 12/29/17 22:25 90 18 150/81 96 Room Air 12/29/17 21:14 36.8 91 18 176/99 93 Room Air Physical Exam: General Appearance: no apparent distress Eyes: bilateral eyes normal inspection ENT: hearing grossly normal Neck: no JVD Respiratory/Chest: no respiratory distress, no accessory muscle use Cardiovascular: no JVD Extremities: normal inspection Neurologic/Psychiatric: alert, normal mood/affect, oriented x 3 Skin: normal color Assessment & Plan Assessment & Plan Treatment Planned: cystoscopy w/ stent 4mm proximal left ureteral stone with fever Will plan for cysto with left ureteral stent placement today in the setting of fever. Risks and benefits of the procedure discussed with the pt. All questions answered. Pt agrees to the procedure at this time. Continue IV abx pending culture sensitivities. Will also check blood cultures. Will check a pre-op chest x-ray and EKG as well. Recommend she remain inpatient until she has been afebrile for 24hrs. Thanks for the consult. Will continue to follow along with primary service.
--- NOTE | 2017-12-30 08:00 | DIAGNOSTIC IMAGING REPORT ---
CHEST ONE VIEW PORTABLE HISTORY: pre-op COMPARISON: None. FINDINGS: Cardiac silhouette is borderline enlarged. No pleural effusions. No pneumothorax. The lungs are clear. IMPRESSION: Borderline enlargement of the cardiac silhouette. Otherwise, no acute process within the chest. Electronically signed by: Rogelio Muhammad M.D. 12/30/2017 7:58 AM Dictated Date/Time: 12/30/2017 7:42 AM
[2017-12-30] MEDS: AMLODIPINE BESYLATE 5 MG TAB PO SCH (08:12)
[2017-12-30] MEDS ORDERED: Cysto-Conray II 17.2% 250ML BOTTLE ONE (08:16)
[2017-12-30] MEDS ORDERED: FENTANYL CITRATE INJ 50 MCG/1 ML 2 ML VIAL ONE (08:42)
[2017-12-30] MEDS ORDERED: MIDAZOLAM HCL 1 MG/ML 2ML VIAL ONE (08:43)
[2017-12-30] MEDS ORDERED: NALOXONE HCL 0.4 MG/1 ML VIAL/CARP IV PRN (08:45)
[2017-12-30] MEDS ORDERED: FENTANYL CITRATE INJ 50 MCG/1 ML 2 ML VIAL IV PRN (08:45)
[2017-12-30] MEDS ORDERED: ATROPINE SULFATE 0.1 MG/ML 5ML SYR IV PRN (08:45)
[2017-12-30] MEDS ORDERED: LABETALOL HCL IV 5 MG/ML 20ML IV PRN (08:45)
[2017-12-30] MEDS ORDERED: FLUMAZENIL 0.1 MG/1 ML 10 ML VIAL IV PRN (08:45)
[2017-12-30] MEDS ORDERED: MEPERIDINE HCL 25 MG/ML CARP IV PRN (08:45)
[2017-12-30] MEDS ORDERED: HYDROmorphone INJ 2 MG/ML SYR/VIAL IV PRN (08:45)
[2017-12-30] MEDS ORDERED: EpHEDrine SULFATE INJ 50 MG/ML AMP IV PRN (08:45)
[2017-12-30] MEDS ORDERED: PHENYLEPHRINE 100MCG/ML 5ML SYR IV PRN (08:45)
[2017-12-30] MEDS ORDERED: LIDOCAINE HCL 2% 2 ML VIAL (20MG/ML) ONE (08:46)
[2017-12-30] MEDS ORDERED: PROPOFOL IV EMULSION 10 MG/ML 20 ML VIAL ONE (08:46)
--- NOTE | 2017-12-30 09:12 | [facility] Operative Report ---
Operative Report Operative Date Dec 30, 2017. Pre-Operative Diagnosis Kidney Stone, Urosepsis, Urinary Tract Infection Post-Operative Diagnosis Kidney Stone, Urosepsis, Urinary Tract Infection Procedure(s) Performed Cystoscopy, Left Ureteral Stent Insertion(6 [place] by 24 cm), Left Retrograde Pyelogram Surgeon Dr Gomes Clock Repair Technician Surgeon(s) None Estimated Blood Loss 0cc Specimens None per surgeon Drains Stent Anesthesia Type MAC Complication(s) none Disposition yes Recovery Room / PACU Description of Procedure Patient was identified in the preoperative holding area, appropriate informed consents reviewed and completed and she was transported to the operating suite. She already received ciprofloxacin upon arrival. Adequate sedation was achieved, and she was placed in dorsal lithotomy position where she was sterilely prepped and draped in standard fashion. I began the case with passing a 22 [place] cystoscope with 30 lens. Upon inspection of the bladder was conducted. No stones are visualized within the bladder. There were no mucosal abnormalities or tumors. I turned my attention to the left ureteral orifice and cannulated with a sensor wire and a 5 [place] open-ended catheter. Upon first evaluation under fluoroscopy, I did not appreciate the left proximal ureteral calculus, however has passed the wire and subsequently the 5 [place] ended up catheter, I did feel bit of resistance to the UPJ and then could visualize the stone. After advancing a 5 [place] open-ended catheter into the kidney, I placed a small amount of contrast to confirm my position. There was minimal hydronephrosis. I then replaced the wire and withdrew the 5 [place] and over catheter before placing a 6 [place] by 24 cm double-J ureteral stent. I saw good curl in the kidney as well as the bladder. Case was subsequently concluded after emptying the bladder. She was reversed from anesthesia and taken to the PACU in stable condition. I attest to the content of the Intraoperative Record and any orders documented therein. Any exceptions are noted below.
--- NOTE | 2017-12-30 09:22 | Anesthesiology Progress Note ---
Anesthesia Post Op Note Date & Time Dec 30, 2017 at 09:22 Vital Signs Pain Intensity: 0 Vital Signs Past 12 Hours Date Time Temp Pulse Resp B/P (MAP) Pulse Ox O2 Delivery O2 Flow Rate FiO2 12/30/17 08:35 94 Room Air 12/30/17 07:42 36.7 84 20 108/68 (81) 94 Room Air 12/30/17 06:20 37.2 12/30/17 02:46 38.4 12/30/17 01:53 38.1 97 18 147/85 93 Room Air 12/30/17 00:55 102 18 122/69 95 Room Air 12/29/17 23:28 103 18 154/79 95 Room Air 12/29/17 22:25 90 18 150/81 96 Room Air Notes Mental Status: alert / awake / arousable, participated in evaluation Pt Amnestic to Procedure: Yes Nausea / Vomiting: adequately controlled Pain: adequately controlled Airway Patency, RR, SpO2: stable & adequate BP & HR: stable & adequate Hydration State: stable & adequate Anesthetic Complications: no major complications apparent
--- NOTE | 2017-12-30 09:40 | DIAGNOSTIC IMAGING REPORT ---
RETROGRADE INCLUDES KUB HISTORY: 52 years-old Female LT CYSTO/STENT prior left ureteral calculi COMPARISON: CT abdomen and pelvis 12/29/2017 TECHNIQUE: 5 spot fluoroscopic images of the left abdomen were obtained utilizing 9.9 seconds fluoroscopy time FINDINGS: Guidewire and sheath within the left ureter are noted. Subsequent images demonstrate contrast opacification of the left renal collecting system and left renal pelvis. Deployment of a left ureteral stent with proximal portion within the region of the left renal pelvis. The distal portion of the stent is not imaged. Linear area of increased density adjacent to the proximal portion of the stent suggests residual ureteral calculus. IMPRESSION: Fluoroscopic assistance as above. Please see procedural report for further details. The above report was generated using voice recognition software. It may contain grammatical, syntax or spelling errors. Electronically signed by: Cipriano Barr M.D. 12/30/2017 9:38 AM Dictated Date/Time: 12/30/2017 9:36 AM
--- NOTE | 2017-12-30 13:02 | Anesthesiology Progress Note ---
Anesthesia Post Op Note Date & Time Dec 30, 2017 at 13:01 Vital Signs Pain Intensity: 0.0 Vital Signs Past 12 Hours Date Time Temp Pulse Resp B/P (MAP) Pulse Ox O2 Delivery O2 Flow Rate FiO2 12/30/17 12:06 36.6 70 16 123/75 (91) 94 Room Air 12/30/17 11:01 36.7 72 16 108/70 (83) 94 Room Air 12/30/17 10:33 36.6 76 18 142/87 (105) 95 Room Air 12/30/17 09:45 36.7 77 18 112/70 (84) 94 Room Air 12/30/17 09:45 94 Room Air 12/30/17 09:35 79 19 117/67 95 Room Air 12/30/17 09:30 36.6 79 22 120/69 95 Room Air 12/30/17 09:20 85 20 124/74 97 Room Air 12/30/17 09:14 36.3 94 19 131/80 96 Room Air 12/30/17 08:35 94 Room Air 12/30/17 07:45 Room Air 12/30/17 07:42 36.7 84 20 108/68 (81) 94 Room Air 12/30/17 06:20 37.2 12/30/17 02:46 38.4 12/30/17 01:53 38.1 97 18 147/85 93 Room Air Notes Mental Status: alert / awake / arousable, participated in evaluation Pt Amnestic to Procedure: Yes Nausea / Vomiting: adequately controlled Pain: adequately controlled Airway Patency, RR, SpO2: stable & adequate BP & HR: stable & adequate Hydration State: stable & adequate Anesthetic Complications: no major complications apparent
--- NOTE | 2017-12-30 13:26 | Family Medicine Progress Note ---
Progress Note Date of Service Dec 30, 2017. Subjective Pt evaluation today including: conversation w/ patient, conversation w/ family , physical exam, review of studies Pain: Denies pain PO Intake: Tolerating well Voiding: no voiding problems Patient seen in room after procedure to remove stone. She is feeling very well, has no complaints, and is eager to return home. Constitutional: No fever, No chills Respiratory: No cough Abdomen: No pain, No nausea, No vomiting Musculoskeletal: No muscle pain Female : No dysuria All Other Systems: Reviewed and Negative Medications Current Inpatient Medications Medications (Trade) Dose Ordered Sig/Radha Route Start Time Stop Time Status Last Admin Dose Admin Ioversol (Optiray 320) 125 ml UD PRN IV 12/29/17 23:00 01/02/18 22:59 Amlodipine Besylate (Norvasc Tab) 5 mg DAILY PO 12/30/17 09:00 01/29/18 08:59 12/30/17 08:12 5 MG Ceftriaxone Sodium 1 gm/ Dextrose 50 ml @ 100 mls/hr Q24H IV 12/30/17 22:00 01/09/18 21:59 Acetaminophen (Tylenol Tab) 650 mg Q4H PRN PO 12/30/17 00:15 01/29/18 00:14 12/30/17 03:26 650 MG Al Hydrox/Mg Hydrox/Simethicone (Maalox Max Susp) 15 ml Q4H PRN PO 12/30/17 00:15 01/29/18 00:14 Magnesium Hydroxide (Milk Of Magnesia Susp) 30 ml Q6H PRN PO 12/30/17 00:15 01/29/18 00:14 Polyethylene (Miralax Powder Packet) 17 gm DAILY PRN PO 12/30/17 01:45 01/29/18 01:44 Zolpidem Tartrate (Ambien Tab) 5 mg HSZ PRN PO 12/30/17 00:15 01/29/18 00:14 Ondansetron HCl (Zofran Inj) 4 mg Q6H PRN IV 12/30/17 00:15 01/29/18 00:14 Hydromorphone HCl (Dilaudid Inj) 0.5 mg Q3H PRN IV 12/30/17 00:15 01/13/18 00:14 Miscellaneous (Iv Fluids Completed) 1 ea PRN PRN N/A 12/30/17 00:30 12/30/18 00:29 Ciprofloxacin/ Dextrose (Cipro / D5W) 400 mg PREOP IV 12/30/17 06:00 12/30/17 18:00 Objective Vital Signs Date Time Temp Pulse Resp B/P (MAP) Pulse Ox O2 Delivery O2 Flow Rate FiO2 12/30/17 15:12 37.2 80 18 113/70 (84) 94 Room Air 12/30/17 12:55 36.7 86 16 119/68 (85) 93 Room Air 12/30/17 12:06 36.6 70 16 123/75 (91) 94 Room Air 12/30/17 11:01 36.7 72 16 108/70 (83) 94 Room Air 12/30/17 10:33 36.6 76 18 142/87 (105) 95 Room Air 12/30/17 09:45 36.7 77 18 112/70 (84) 94 Room Air 12/30/17 09:45 94 Room Air 12/30/17 09:35 79 19 117/67 95 Room Air 12/30/17 09:30 36.6 79 22 120/69 95 Room Air 12/30/17 09:20 85 20 124/74 97 Room Air 12/30/17 09:14 36.3 94 19 131/80 96 Room Air 12/30/17 08:35 94 Room Air 12/30/17 07:45 Room Air 12/30/17 07:42 36.7 84 20 108/68 (81) 94 Room Air 12/30/17 06:20 37.2 12/30/17 02:46 38.4 12/30/17 01:53 38.1 97 18 147/85 93 Room Air 12/30/17 00:55 102 18 122/69 95 Room Air 12/29/17 23:28 103 18 154/79 95 Room Air 12/29/17 22:25 90 18 150/81 96 Room Air 12/29/17 21:14 36.8 91 18 176/99 93 Room Air Physical Exam General Appearance: WD/WN, no apparent distress Eyes: PERRL, EOMI ENT: hearing grossly normal Neck: trachea midline Respiratory/Chest: lungs clear, normal breath sounds, no respiratory distress Cardiovascular: regular rate, rhythm, no edema, no murmur Abdomen: normal bowel sounds, non tender, soft, + pertinent finding (No cva tenderness) Extremities: normal inspection, no pedal edema, no calf tenderness Neurologic/Psychiatric: alert, normal mood/affect, oriented x 3 Skin: normal color, warm/dry Laboratory Results Last Resulted 12/29/17 21:30 Red Blood Count 4.77, Mean Corpuscular Volume 88.3, Mean Corpuscular Hemoglobin 31.4, Mean Corpuscular Hemoglobin Concent 35.6, Mean Platelet Volume 10.0, Neutrophils (%) (Auto) 73.5, Lymphocytes (%) (Auto) 22.0, Monocytes (%) (Auto) 2.2, Eosinophils (%) (Auto) 1.2, Basophils (%) (Auto) 0.3, Neutrophils # (Auto) 6.77, Lymphocytes # (Auto) 2.02, Monocytes # (Auto) 0.20, Eosinophils # (Auto) 0.11, Basophils # (Auto) 0.03 Last Resulted 12/29/17 21:30 Assessment and Plan 52 y/o F with PMH of HTN presented to ED with sudden onset L flank pain rated 9/ 10 radiating to left groin, nausea and vomiting. Her UA was (+) and imaging indicated a proximal ureteral stone at [facility] with mild hydronephrosis Obstructing calculus with UTI/mild hydronephrosis - underwent stenting today per urology service, successful - Continue ceftriaxone, will convert to PO antibiotic on discharge - Pain well controlled - DCd IVF HTN - cont Norvasc Code:Full DVTP: SCDs Dispo: home tomorrow, assuming 24 hr fever free Resident Tracking Resident Involvement: Resident Care Provided Care Provided: Adult Hospital Medicine Reviewed: Pt Seen/Exam by Me History pain controlled after stent placement had fever earlier Respiratory: negative: short of breath Cardiovascular: denies chest pain General Appearance: no apparent distress Respiratory: no respiratory distress Neurologic/Psychiatric: alert, oriented x 3 Assessment/Plan Resident Physician Supervision Note: I independently interviewed and examined the patient and verified the pat history and physical, reviewed labs and image studies, discussed the case with the resident Dr. Aguilar and agree with the findings and care plan.
[2017-12-30] MEDS ORDERED: CEFTRIAXONE SOD INJ 1 GM in DEXTROSE 5% ADD-VANTAGE 50ML 50 ML IV SCH (22:00)
[2017-12-31 03:45] VITALS: BP 131/78; PULSE 84; TEMP 37.9; O2SAT 94
[2017-12-31] MEDS: ACETAMINOPHEN 325 MG TAB PO PRN (04:13)
[2017-12-31 06:57] LABS: HEMOGLOBIN 13.9 g/dL (12.0-16.0); MEAN CELL VOLUME 90.3 fL (80-100); MEAN CORPUSCULAR HEMOGLOBIN 31.4 pg (25-34); MEAN CORPUSCULAR HGB CONC 34.8 g/dl (32-36); MEAN PLATELET VOLUME 9.7 fL (7.4-10.4); PLATELET COUNT 213 K/uL (130-400); RED CELL DISTRIBUTION WIDTH CV 13.4 % (11.5-14.5); RED CELL DISTRIBUTION WIDTH SD 44.3 fL (36.4-46.3); WHITE BLOOD COUNT 11.52 K/uL (4.8-10.8)
[2017-12-31 07:16] VITALS: BP 116/72; PULSE 69; TEMP 37.2; O2SAT 93
[2017-12-31 07:31] LABS: CALCIUM 8.1 mg/dl (8.5-10.1); CREATININE 0.62 mg/dl (0.60-1.20); POTASSIUM 3.8 mmol/L (3.5-5.1)
[2017-12-31] MEDS: AMLODIPINE BESYLATE 5 MG TAB PO SCH (08:47)
[2017-12-31] MEDS ORDERED: CIPR-255 PO (11:04)
--- NOTE | 2017-12-31 11:31 | Urology Progress Note ---
Progress Note Date of Service Dec 31, 2017. Subjective Pt evaluation today including: conversation w/ patient, physical exam, chart review, lab review Pain: denies Voiding: no voiding problems 52 YO female, POD#1 s/p left ureteral stent placement. Patient denies pain this morning, states she is feeling much better. Does not notice stent. Denies feeling feverish, although her elevated temp overnight is noted. Denies nausea/vomiting. Denies dysuria. Intermittent hematuria. No difficulties voiding. Constitutional: No fever, No chills Eyes: No worsening of vision ENT: No hearing loss Respiratory: No shortness of breath Cardiovascular: No chest pain Abdomen: No pain, No nausea, No vomiting Female : + hematuria, No dysuria, No urinary frequency Neurologic: No numbness/tingling Heme: No night sweats Objective Vital Signs Date Time Temp Pulse Resp B/P (MAP) Pulse Ox O2 Delivery O2 Flow Rate FiO2 12/31/17 07:35 Room Air 12/31/17 07:16 37.2 69 16 116/72 (87) 93 Room Air 12/31/17 03:45 37.9 84 16 131/78 (95) 94 Room Air 12/31/17 00:00 Room Air 12/30/17 23:00 37.0 82 16 146/77 (100) 97 Room Air 12/30/17 20:00 Room Air 12/30/17 19:48 37.5 89 18 137/72 (93) 93 Room Air 12/30/17 16:00 94 Room Air 12/30/17 15:12 37.2 80 18 113/70 (84) 94 Room Air 12/30/17 12:55 36.7 86 16 119/68 (85) 93 Room Air 12/30/17 12:06 36.6 70 16 123/75 (91) 94 Room Air Physical Exam General Appearance: no apparent distress Eyes: normal inspection ENT: hearing grossly normal Neck: supple, no JVD Respiratory/Chest: no respiratory distress, no accessory muscle use Cardiovascular: no edema, no JVD Abdomen: non tender, soft Extremities: normal inspection Neurologic/Psychiatric: alert, normal mood/affect, oriented x 3 Skin: normal color Laboratory Results Last 24 Hours Test 12/31/17 06:30 White Blood Count 11.52 K/uL Red Blood Count 4.43 M/uL Hemoglobin 13.9 g/dL Hematocrit 40.0 % Mean Corpuscular Volume 90.3 fL Mean Corpuscular Hemoglobin 31.4 pg Mean Corpuscular Hemoglobin Concent 34.8 g/dl RDW Standard Deviation 44.3 fL RDW Coefficient of Variation 13.4 % Platelet Count 213 K/uL Mean Platelet Volume 9.7 fL Sodium Level 141 mmol/L Potassium Level 3.8 mmol/L Chloride Level 110 mmol/L Carbon Dioxide Level 26 mmol/L Anion Gap 5.0 mmol/L Blood Urea Nitrogen 10 mg/dl Creatinine 0.62 mg/dl Est Creatinine Clear Calc Drug Dose 110.1 ml/min Estimated GFR () 119.3 Estimated GFR (Non- 102.9 BUN/Creatinine Ratio 15.5 Random Glucose 126 mg/dl Calcium Level 8.1 mg/dl Assessment and Plan 52 YO female, POD#1 s/p left ureteral stent placement. Patient appears to be tolerating stent extremely well, denies pain today. Creatinine is stable. Fevers have improved. Recommend continued PO antibiotic therapy for a total of 7d. Recommend Flomax QHS and Pyridium Q6 PRN to manage stent discomfort at home. Will arrange appropriate follow up in our outpatient office within 7d to discuss stent and stone management. Thank you for allowing us to participate in the care of this patient. Contact our service with any remaining questions or concerns. Discharge planning: home
--- NOTE | 2017-12-31 11:31 | Discharge Instructions ---
Discharge Instructions Date of Service Dec 31, 2017. Admission Reason for Admission: Hydronephrosis With Obstructing Calculus Discharge Discharge Diagnosis / Problem: Kidney stone, resolved after stenting. UTI. Discharge Goals Goal(s): Decrease discomfort, Improve disease control, Prevent Disease Progression Activity Recommendations Activity Limitations: per Instructions/Follow-up section . Instructions / Follow-Up Instructions / Follow-Up During this admission you were evaluated for Left sided flank pain. You were found to have a kidney stone which was blocking the passageway from your kidney to your bladder. You were also found to have a urinary tract infection, likely related to this obstruction. During your stay you had a stent placed to help open the passageway, and the kidney stone was successfully removed. You will be placed on an antibiotic for the urinary tract infection. Take this as prescribed. Keep any follow up appointments with urology that they will set up for you. We recommend you follow up with your primary care provider within the next 7-10 days to discuss this visit and to discuss measures to prevent further kidney stones. If tylenol and/or advil are not helping with your pain level, contact your primary care physician. If your symptoms return or worsen, please return to the ED. Current Hospital Diet Patient's current hospital diet: Regular Diet Discharge Diet Recommended Diet: Regular Diet Procedures Procedures Performed: Cystoscopy, Left Ureteral Stent Insertion(6 [place] by 24 cm), Left Retrograde Pyelogram Pending Studies Studies pending at discharge: no Laboratory Results Lipid Panel Test 12/14/17 11:15 Range/Units Triglycerides Level 124 0-150 mg/dl Cholesterol Level 194 0-200 mg/dl HDL Cholesterol 56 mg/dl Cholesterol/HDL Ratio 3.5 LDL Cholesterol, Calculated 113 mg/dl Medical Emergencies . Who to Call and When: Medical Emergencies: If at any time you feel your situation is an emergency, please call 911 immediately. . Non-Emergent Contact Non-Emergency issues call your: Primary Care Provider, Urologist . . "Provider Documentation" section prepared by Ana María Aguilar. .
--- NOTE | 2017-12-31 11:35 | Discharge Summary ---
Discharge Summary Date of Service Dec 31, 2017. Discharge Summary Admission Date: Dec 30, 2017 at 00:12 Discharge Date: Dec 31, 2017 Discharge Disposition: Home Principal Diagnosis: Mild Hydronephrosis with obstructing calculus, Complicated UTI Problems/Secondary Diagnoses: HTN Immunizations: Have You Had Influenza Vaccine: Unknown History of Tetanus Vaccine?: Unknown History of Pneumococcal: Unknown History of Hepatitis B Vaccine: Unknown Procedures: Cystoscopy, Left Ureteral Stent Insertion(6 Taiwanese by 24 cm), Left Retrograde Pyelogram Consultations: Urology Medication Reconciliation New Medications: Ciprofloxacin Hcl (Cipro) 500 Mg Tab 500 MG PO BID for 5 Days, #10 TAB Continued Medications: Amlodipine (Norvasc) 5 Mg Tab 5 MG PO DAILY, TAB Discharge Exam Review of Systems: Constitutional: No fever, No chills Respiratory: No cough, No shortness of breath Abdomen: No pain, No nausea, No vomiting Genitourinary - Female: No dysuria, No urinary frequency, No urinary urgency , No hematuria Neurologic: No numbness/tingling Physical Exam: General Appearance: WD/WN, no apparent distress Eyes: PERRL, EOMI ENT: hearing grossly normal Neck: no adenopathy, no carotid bruits, trachea midline Respiratory/Chest: chest non-tender, lungs clear, normal breath sounds, no respiratory distress, no accessory muscle use Cardiovascular: regular rate, rhythm, no edema, no murmur, normal peripheral pulses Abdomen / GI: normal bowel sounds, non tender, soft Extremities: normal inspection, no pedal edema 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 Her UA was (+ ) and imaging indicated a proximal ureteral stone at [facility] with mild hydronephrosis Obstructing calculus with UTI/mild hydronephrosis - underwent successful stenting per urology service - Converted IV abx to cipro 500 BID x 5 days - Pain well controlled - Patient will have follow up with urology HTN - cont Norvasc Code: Full Total Time Spent: Less than 30 minutes This includes examination of the patient, discharge planning, medication reconciliation, and communication with other providers. Discharge Instructions Please refer to the electronic Patient Visit Report (Discharge Instructions) for additional information. Additional Copies To Emilie Avina C.R.N.PJonathan Resident Tracking Resident Involvement: Resident Care Provided Care Provided: Adult [facility] Medicine Reviewed: Pt Seen/Exam by Me History flank pain resolved Constitutional: denies: fever Respiratory: negative: short of breath Cardiovascular: denies chest pain General Appearance: no apparent distress Respiratory: lungs clear, no respiratory distress Cardiovascular: regular rate, rhythm Neurologic/Psychiatric: alert, oriented x 3 Skin Characteristics: warm/dry Assessment/Plan Resident Physician Supervision Note: I independently interviewed and examined the patient and verified the pat history and physical, reviewed labs and image studies, discussed the case with the resident Dr. Aguilar and agree with the findings and care plan. Time spent in discharge 35 min
[2017-12-31 11:53] VITALS: BP 116/72; PULSE 69; TEMP 37.2; O2SAT 93
== END 2017-12-31 12:31 | disposition home or self-care (01) ==
LOC: C.EDB 21:09 → C.MSN 12-30 00:12 → ENRESERV 12-30 00:45
PROVIDERS: ADMIT Internal Medicine; ATTEND Internal Medicine
DX: N13.2 Hydronephrosis with renal and ureteral calculous obstruction (principal); N39.0 Urinary tract infection, site not specified; I10 Essential (primary) hypertension; Z87.442 Personal history of urinary calculi

== ENCOUNTER → 2018-01-12 | Outpatient (CLI) | payer OTHER ==
[~2018-01-12] MED LIST changes: +AMLO5TAB3 PO; -CALC-393 PO; +CIPR-255 PO; -MULT-506 PO
--- NOTE | 2018-01-12 10:30 | DIAGNOSTIC IMAGING REPORT ---
KUB CLINICAL HISTORY: Nephrolithiasis. FINDINGS: 2 AP supine abdominal radiographs are correlated with abdominal CT dated 12/29/2017. A left ureteral stent is new from previous. No calcifications are identified along the course of the stent. No calcifications are seen projecting over either kidney on today's examination. There is no bowel obstruction. Moderate colonic fecal retention is observed. Small phleboliths are noted in the pelvis. The bony structures appear intact. IMPRESSION: 1. A left ureteral stent is new from previous. No calcifications are seen along the course of the stent. 2. No calcifications project over either kidney on today's examination. Electronically signed by: Evans Hermosillo M.D. 01/12/2018 10:28 AM Dictated Date/Time: 01/12/2018 10:27 AM
== END | disposition home or self-care (01) ==
LOC: C.RAD 09:54
PROVIDERS: ATTEND Urology
DX: N20.0 Calculus of kidney (principal); Z96.0 Presence of urogenital implants

== ENCOUNTER → 2018-01-12 | Outpatient (CLI) | payer OTHER | END | disposition home or self-care (01) | LOC: C.LABSPEC 17:40 | PROVIDERS: ATTEND Urology | DX: N20.0 Calculus of kidney (principal) ==